=== PATIENT | male | born 1945 | race Caucasian/White ===

== ENCOUNTER 2021-01-03 21:50 | Inpatient (IN) | payer MEDICARE, OTHER ==
[2021-01-03 22:33] VITALS: BMI 32.9
[2021-01-04] MEDS: Aspirin Chewable 81 MG TAB PO SCH ×2 (08:39→09:15)
[2021-01-04] MEDS: Amlodipine 5 MG TAB PO SCH ×2 (08:39→09:14)
[2021-01-04] MEDS: Enoxaparin Sodium 40 MG/0.4 ML SYRINGE SC SCH ×2 (08:40→09:15)
[2021-01-05] MEDS: Amlodipine 5 MG TAB PO SCH (09:02)
[2021-01-05] MEDS: Enoxaparin Sodium 40 MG/0.4 ML SYRINGE SC SCH (09:03)
[2021-01-05] MEDS: Aspirin Chewable 81 MG TAB PO SCH (09:03)
[2021-01-05 13:18] LABS: Hemoglobin 19.9 g/dL (14.0-18.0); Mean Corpuscular HGB CONC 33.2 g/dL (32.0-36.0); Mean Corpuscular Hemoglobin 28.9 pg (27.0-31.0); Mean Corpuscular Volume 87.2 fL (78.0-98.0); Platelet Count 192 thou/uL (130-400); RBC Distribution Width 13.3 % (11.5-14.5); Red Blood Cell (RBC) Count 6.86 mill/uL (4.70-6.10); White Blood Cell (WBC) Count 17.2 thou/uL (4.8-10.8)
[2021-01-05 13:39] LABS: Band 4 % (5-11); Eosinophils 1 % (0-10); Lymphocytes 7 % (21-51); MDiff Complete? YES; Monocytes 21 % (0-10); Neutrophil 67 % (42-75); Platelet Morphology Comment Appears Adequate; RBC Morphology Normal
[2021-01-05] MEDS: Apixaban 5 MG TAB PO SCH (21:36)
[2021-01-06] MEDS: Apixaban 5 MG TAB PO SCH ×2 (10:19→22:13)
[2021-01-06] MEDS: Sulfameth/Trimethoprim DS 800-160mg TAB PO SCH ×3 (10:19→22:12)
[2021-01-06] MEDS: Aspirin Chewable 81 MG TAB PO SCH (10:19)
[2021-01-06] MEDS: Amlodipine 5 MG TAB PO SCH (10:20)
[2021-01-06 17:22] LABS: ALT (SGPT) 24 U/L (8-55); AST (SGOT) 26 U/L (5-34); Alkaline Phosphatase 54 U/L (40-110); Anion Gap 13 mmol/L (10-20); BUN (Urea Nitrogen) 16 mg/dL (8.4-25.7); Bilirubin, Total 0.9 mg/dL (0.2-1.2); Calc. Creatinine Clearance 68 mL/min (70-130); Calcium 8.6 mg/dL (7.8-10.44); Carbon Dioxide 25 mmol/L (23-31); Chloride 104 mmol/L (98-107); Globulin 3.3 g/dL (2.4-3.5); Glucose 105 mg/dL (83-110); Potassium 3.7 mmol/L (3.5-5.1); Protein, Total 6.3 g/dL (5.8-8.1); Sodium 138 mmol/L (136-145)
[2021-01-06 17:52] LABS: #Basophils 0.2 thou/uL (0.0-0.2); #Lymphocytes 1.7 thou/uL (1.20-3.40); #Neutrophils 6.5 thou/uL (1.40-6.50); %Basophils 1.8 % (0.0-1.0); %Lymphocytes 17.7 % (21.0-51.0); %Neutrophils 69.5 % (42.0-75.0); Hemoglobin 16.8 g/dL (14.0-18.0); Mean Corpuscular HGB CONC 33.7 g/dL (32.0-36.0); Mean Corpuscular Hemoglobin 28.9 pg (27.0-31.0); Mean Corpuscular Volume 85.8 fL (78.0-98.0); Mean Platelet Volume 8.4 fL (7.4-10.4); Platelet Count 172 thou/uL (130-400); RBC Distribution Width 13.5 % (11.5-14.5); Red Blood Cell (RBC) Count 5.83 mill/uL (4.70-6.10); White Blood Cell (WBC) Count 9.4 thou/uL (4.8-10.8)
[2021-01-07 05:58] VITALS: TEMP 98.7
[2021-01-07] MEDS: Apixaban 5 MG TAB PO SCH (09:07)
[2021-01-07] MEDS: Aspirin Chewable 81 MG TAB PO SCH (09:08)
[2021-01-07] MEDS: Sulfameth/Trimethoprim DS 800-160mg TAB PO SCH (09:08)
[2021-01-07] MEDS: Amlodipine 5 MG TAB PO SCH (09:08)
[2021-01-07 09:09] VITALS: BP 113/60
[2021-01-12] MEDS ORDERED: Apixaban 5 MG TAB PO SCH (21:00)
== END 2021-01-07 15:30 | DRG 178 ==
LOC: BURMED 21:50
PROVIDERS: ADMIT Family Medicine; ATTEND Family Medicine
PROC: 8E0ZXY6 Isolation (ICD-10-PCS; principal; 2021-01-03)
DX: U07.1 COVID-19 (principal); L03.116 Cellulitis of left lower limb; I82.402 Acute embolism and thrombosis of unspecified deep veins of left lower extremity; R53.1 Weakness; I10 Essential (primary) hypertension; N40.0 Benign prostatic hyperplasia without lower urinary tract symptoms; E78.5 Hyperlipidemia, unspecified; I73.9 Peripheral vascular disease, unspecified; F03.90 Unspecified dementia, unspecified severity, without behavioral disturbance, psychotic disturbance, mood disturbance, and anxiety; Z86.718 Personal history of other venous thrombosis and embolism; Z86.711 Personal history of pulmonary embolism; Z98.890 Other specified postprocedural states; Z85.828 Personal history of other malignant neoplasm of skin; Z79.82 Long term (current) use of aspirin; Z91.81 History of falling
CPT/HCPCS: 36415; 80053; 85025; 85379; J1650; J1956